=== PATIENT | male | born 1945 | race Two or more races ===

== ENCOUNTER 2017-08-31 08:34 | Outpatient (CLI) | payer OTHER | END 2017-08-31 08:43 | disposition home or self-care (01) | LOC: LAB 08:34 | DX: E11.65 Type 2 diabetes mellitus with hyperglycemia (principal); E10.65 Type 1 diabetes mellitus with hyperglycemia; E03.8 Other specified hypothyroidism; E05.90 Thyrotoxicosis, unspecified without thyrotoxic crisis or storm; E78.2 Mixed hyperlipidemia; E55.9 Vitamin D deficiency, unspecified; D64.89 Other specified anemias; N39.0 Urinary tract infection, site not specified; N40.0 Benign prostatic hyperplasia without lower urinary tract symptoms; E21.3 Hyperparathyroidism, unspecified; E24.9 Cushing's syndrome, unspecified; E29.1 Testicular hypofunction; E22.1 Hyperprolactinemia ==

== ENCOUNTER 2017-11-23 10:48 | Outpatient (CLI) | payer OTHER | END 2017-11-23 10:58 | disposition home or self-care (01) | LOC: MRI 10:48 | DX: M54.5 Low back pain (principal) | CPT/HCPCS: 72148 ==

== ENCOUNTER 2017-12-21 13:57 | Outpatient (CLI) | payer OTHER | END 2017-12-21 14:05 | disposition home or self-care (01) | LOC: SONOGRAMA 13:57 | DX: E04.1 Nontoxic single thyroid nodule (principal) ==

== ENCOUNTER 2017-12-22 07:37 | Outpatient (CLI) | payer OTHER | END 2017-12-22 08:06 | disposition home or self-care (01) | LOC: LAB 07:37 | DX: E11.65 Type 2 diabetes mellitus with hyperglycemia (principal); E10.65 Type 1 diabetes mellitus with hyperglycemia; E03.8 Other specified hypothyroidism; E05.90 Thyrotoxicosis, unspecified without thyrotoxic crisis or storm; E78.2 Mixed hyperlipidemia; E55.9 Vitamin D deficiency, unspecified; D68.9 Coagulation defect, unspecified; N39.0 Urinary tract infection, site not specified; N40.0 Benign prostatic hyperplasia without lower urinary tract symptoms; E21.3 Hyperparathyroidism, unspecified; E24.8 Other Cushing's syndrome; E29.1 Testicular hypofunction; E22.1 Hyperprolactinemia; E27.49 Other adrenocortical insufficiency ==

== ENCOUNTER 2018-05-12 08:33 | Outpatient (CLI) | payer OTHER | END 2018-05-12 08:35 | disposition home or self-care (01) | LOC: LAB 08:33 | DX: E11.65 Type 2 diabetes mellitus with hyperglycemia (principal); E10.65 Type 1 diabetes mellitus with hyperglycemia; E03.8 Other specified hypothyroidism; E05.90 Thyrotoxicosis, unspecified without thyrotoxic crisis or storm; E78.2 Mixed hyperlipidemia; E55.9 Vitamin D deficiency, unspecified; D64.89 Other specified anemias; N39.0 Urinary tract infection, site not specified; N40.0 Benign prostatic hyperplasia without lower urinary tract symptoms; E29.1 Testicular hypofunction; E22.1 Hyperprolactinemia; E27.49 Other adrenocortical insufficiency; E21.2 Other hyperparathyroidism; E24.8 Other Cushing's syndrome ==

== ENCOUNTER → 2018-07-25 | Outpatient (CLI) | payer OTHER | END | disposition home or self-care (01) | LOC: RAD 16:04 | DX: M17.11 Unilateral primary osteoarthritis, right knee (principal) ==

== ENCOUNTER 2018-09-19 09:03 | Outpatient (CLI) | payer OTHER | END 2018-09-19 09:09 | disposition home or self-care (01) | LOC: LAB 09:03 | DX: E11.65 Type 2 diabetes mellitus with hyperglycemia (principal); D64.89 Other specified anemias; E78.2 Mixed hyperlipidemia ==

== ENCOUNTER 2018-12-04 16:19 | Outpatient (CLI) | payer OTHER | END 2018-12-04 16:28 | disposition home or self-care (01) | LOC: LAB 16:19 | DX: R97.20 Elevated prostate specific antigen [PSA] (principal) ==

== ENCOUNTER 2018-12-23 07:59 | Outpatient (CLI) | payer OTHER | END 2018-12-23 08:06 | disposition home or self-care (01) | LOC: LAB 07:59 | DX: E55.9 Vitamin D deficiency, unspecified (principal); E03.8 Other specified hypothyroidism; D64.89 Other specified anemias; N40.0 Benign prostatic hyperplasia without lower urinary tract symptoms; E78.2 Mixed hyperlipidemia; E11.65 Type 2 diabetes mellitus with hyperglycemia; N31.8 Other neuromuscular dysfunction of bladder ==

== ENCOUNTER → 2019-01-17 | Outpatient (CLI) | payer OTHER | END | disposition home or self-care (01) | LOC: TOM 14:58 | DX: S06.5X0A Traumatic subdural hemorrhage without loss of consciousness, initial encounter (principal) ==

== ENCOUNTER 2019-01-26 14:29 | Outpatient (CLI) | payer OTHER | END 2019-01-26 14:32 | disposition home or self-care (01) | LOC: RAD 14:29 | DX: M47.12 Other spondylosis with myelopathy, cervical region (principal) ==

== ENCOUNTER 2019-04-30 09:42 | Outpatient (CLI) | payer OTHER | END 2019-04-30 09:48 | disposition home or self-care (01) | LOC: LAB 09:42 | DX: R97.21 Rising PSA following treatment for malignant neoplasm of prostate (principal); E55.9 Vitamin D deficiency, unspecified; E11.65 Type 2 diabetes mellitus with hyperglycemia; D64.89 Other specified anemias; E78.2 Mixed hyperlipidemia; E03.8 Other specified hypothyroidism; N39.0 Urinary tract infection, site not specified ==

== ENCOUNTER 2019-09-12 08:18 | Outpatient (CLI) | payer OTHER | END 2019-09-12 08:39 | disposition home or self-care (01) | LOC: LAB 08:18 | DX: D64.89 Other specified anemias (principal); E55.9 Vitamin D deficiency, unspecified; E11.65 Type 2 diabetes mellitus with hyperglycemia; E03.8 Other specified hypothyroidism; E78.2 Mixed hyperlipidemia; D51.8 Other vitamin B12 deficiency anemias ==

== ENCOUNTER 2019-10-15 08:17 | Outpatient (CLI) | payer OTHER | END 2019-10-15 08:30 | disposition home or self-care (01) | LOC: LAB 08:17 | DX: R10.84 Generalized abdominal pain (principal); I10 Essential (primary) hypertension; E11.9 Type 2 diabetes mellitus without complications; E78.49 Other hyperlipidemia; D64.89 Other specified anemias; R80.8 Other proteinuria; E55.9 Vitamin D deficiency, unspecified; R06.00 Dyspnea, unspecified; M50.00 Cervical disc disorder with myelopathy, unspecified cervical region ==

== ENCOUNTER 2019-10-15 09:50 | Outpatient (CLI) | payer OTHER | END 2019-10-15 09:59 | disposition home or self-care (01) | LOC: RAD 09:50 | DX: M50.10 Cervical disc disorder with radiculopathy, unspecified cervical region (principal) ==

== ENCOUNTER 2019-10-16 08:51 | Outpatient (CLI) | payer OTHER | END 2019-10-16 08:57 | disposition home or self-care (01) | LOC: NUCLEAR 08:51 | DX: M85.89 Other specified disorders of bone density and structure, multiple sites (principal); M50.00 Cervical disc disorder with myelopathy, unspecified cervical region; M50.10 Cervical disc disorder with radiculopathy, unspecified cervical region ==

== ENCOUNTER 2020-02-25 11:18 | Outpatient (CLI) | payer OTHER | END 2020-02-25 12:38 | disposition home or self-care (01) | LOC: RAD 11:18 | PROVIDERS: ATTEND Orthopaedic Surgery | DX: M50.00 Cervical disc disorder with myelopathy, unspecified cervical region (principal); M50.10 Cervical disc disorder with radiculopathy, unspecified cervical region ==

== ENCOUNTER 2020-03-19 08:15 | Outpatient (CLI) | payer OTHER | END 2020-03-19 15:00 | disposition home or self-care (01) | LOC: LAB 08:15 | PROVIDERS: ATTEND Internal Medicine Cardiovascular Disease | DX: Z00.8 Encounter for other general examination (principal); E13.9 Other specified diabetes mellitus without complications ==

== ENCOUNTER → 2020-06-05 | Outpatient (CLI) | payer OTHER | END | disposition home or self-care (01) | LOC: TOM 11:03 | DX: M47.892 Other spondylosis, cervical region (principal); M48.02 Spinal stenosis, cervical region; M50.00 Cervical disc disorder with myelopathy, unspecified cervical region; M50.10 Cervical disc disorder with radiculopathy, unspecified cervical region ==

== ENCOUNTER → 2020-07-02 08:28 | Outpatient (CLI) | payer OTHER | END | disposition home or self-care (01) | LOC: LAB 08:28 | PROVIDERS: ATTEND Internal Medicine Endocrinology, Diabetes & Metabolism | DX: N40.0 Benign prostatic hyperplasia without lower urinary tract symptoms (principal); E11.65 Type 2 diabetes mellitus with hyperglycemia; N39.0 Urinary tract infection, site not specified; D64.89 Other specified anemias; D51.8 Other vitamin B12 deficiency anemias; E78.2 Mixed hyperlipidemia ==

== ENCOUNTER 2020-09-15 11:14 | Outpatient (CLI) | payer OTHER | END 2020-09-15 11:24 | disposition home or self-care (01) | LOC: LAB 11:14 | PROVIDERS: ATTEND Urology | DX: R31.29 Other microscopic hematuria (principal); R97.21 Rising PSA following treatment for malignant neoplasm of prostate ==

== ENCOUNTER 2020-09-17 13:35 | Outpatient (CLI) | payer OTHER | END 2020-09-17 13:48 | disposition home or self-care (01) | LOC: SONOGRAMA 13:35 → MAMO-SONO 14:15 | PROVIDERS: ATTEND Urology | DX: Q61.8 Other cystic kidney diseases (principal); R97.20 Elevated prostate specific antigen [PSA]; R31.29 Other microscopic hematuria ==

== ENCOUNTER 2020-10-31 07:20 | Outpatient (CLI) | payer OTHER | END 2020-10-31 07:24 | disposition home or self-care (01) | LOC: LAB 07:20 | PROVIDERS: ATTEND Internal Medicine Endocrinology, Diabetes & Metabolism | DX: D64.89 Other specified anemias (principal); E11.65 Type 2 diabetes mellitus with hyperglycemia; E78.2 Mixed hyperlipidemia; N39.0 Urinary tract infection, site not specified; N40.0 Benign prostatic hyperplasia without lower urinary tract symptoms ==

== ENCOUNTER 2020-11-10 10:12 | Outpatient (CLI) | payer OTHER | END 2020-11-10 10:17 | disposition home or self-care (01) | LOC: RAD 10:12 | DX: M50.00 Cervical disc disorder with myelopathy, unspecified cervical region (principal) ==

== ENCOUNTER → 2020-11-24 08:16 | Outpatient (CLI) | payer OTHER | END | disposition home or self-care (01) | LOC: LAB 08:16 | PROVIDERS: ATTEND Internal Medicine Rheumatology | DX: Z79.02 Long term (current) use of antithrombotics/antiplatelets (principal); E79.0 Hyperuricemia without signs of inflammatory arthritis and tophaceous disease; I10 Essential (primary) hypertension ==

== ENCOUNTER 2020-11-24 09:09 | Outpatient (CLI) | payer OTHER | END 2020-11-24 09:15 | disposition home or self-care (01) | LOC: RAD 09:09 | PROVIDERS: ATTEND Internal Medicine Rheumatology | DX: M25.561 Pain in right knee (principal); M25.811 Other specified joint disorders, right shoulder; M15.8 Other polyosteoarthritis; M25.562 Pain in left knee; M25.522 Pain in left elbow ==

== ENCOUNTER 2021-01-27 09:43 | Outpatient (CLI) | payer OTHER | END 2021-01-27 09:48 | disposition home or self-care (01) | LOC: LAB 09:43 | PROVIDERS: ATTEND Internal Medicine Endocrinology, Diabetes & Metabolism | DX: E11.65 Type 2 diabetes mellitus with hyperglycemia (principal); D64.9 Anemia, unspecified; E03.8 Other specified hypothyroidism; D51.8 Other vitamin B12 deficiency anemias ==

== ENCOUNTER → 2021-03-19 08:27 | Outpatient (CLI) | payer OTHER | END | disposition home or self-care (01) | LOC: LAB 08:27 | PROVIDERS: ATTEND Urology | DX: R97.21 Rising PSA following treatment for malignant neoplasm of prostate (principal) ==

== ENCOUNTER 2021-03-30 12:23 | Outpatient (CLI) | payer OTHER | END 2021-03-30 12:30 | disposition home or self-care (01) | LOC: RAD 12:23 | PROVIDERS: ATTEND Physical Medicine & Rehabilitation | DX: M54.5 Low back pain (principal); M17.11 Unilateral primary osteoarthritis, right knee ==

== ENCOUNTER 2021-04-07 06:35 | Outpatient (CLI) | payer OTHER | END 2021-04-07 06:38 | disposition home or self-care (01) | LOC: LAB 06:35 | PROVIDERS: ATTEND Urology | DX: R97.21 Rising PSA following treatment for malignant neoplasm of prostate (principal) ==

== ENCOUNTER 2021-05-18 08:45 | Emergency (ER) | payer OTHER ==
[~2021-05-18] VITALS: Ht 170.2 cm; Wt 68.0 kg
[2021-05-18] MEDS ORDERED: JANUMET 50-1,01 EACH PO (09:20)
[2021-05-18] MEDS ORDERED: GLIPIZIDE XL2.5 MG PO (09:20)
[2021-05-18] MEDS ORDERED: AMLODIPINE-OLM1 EAC3 PO (09:21)
[2021-05-18] MEDS ORDERED: EZALLOR SPRINKL10 MG PO (09:21)
[2021-05-18] MEDS ORDERED: CLONIDINE1 EAC1 (09:21)
[2021-05-18] MEDS ORDERED: GABAPENTIN300 M2 PO (09:22)
[2021-05-18] MEDS ORDERED: HYDRODIURIL12.5 MG PO (09:22)
[2021-05-18] MEDS ORDERED: ZIPSOR25 MG PO (09:22)
[2021-05-18] MEDS ORDERED: FORTAMET1000 MG PO (09:23)
[2021-05-18] MEDS ORDERED: ZYRTEC10 M3 PO (13:20)
[2021-05-18] MEDS ORDERED: CLOTRIMAZOLE-BE15 G1 TOP (13:20)
== END 2021-05-18 14:34 | disposition home or self-care (01) ==
LOC: ER 08:45
DX: L29.8 Other pruritus (principal); R21 Rash and other nonspecific skin eruption

== ENCOUNTER 2021-06-19 10:27 | Outpatient (CLI) | payer OTHER ==
[~2021-06-19 10:27] MED LIST: AMLODIPINE-OLM1 EAC3 PO; CLONIDINE1 EAC1; CLOTRIMAZOLE-BE15 G1 TOP; EZALLOR SPRINKL10 MG PO; FORTAMET1000 MG PO; GABAPENTIN300 M2 PO; GLIPIZIDE XL2.5 MG PO; HYDRODIURIL12.5 MG PO; JANUMET 50-1,01 EACH PO; ZIPSOR25 MG PO; ZYRTEC10 M3 PO
== END 2021-06-19 10:28 | disposition home or self-care (01) ==
LOC: LAB 10:27
PROVIDERS: ATTEND Internal Medicine Endocrinology, Diabetes & Metabolism
DX: E11.65 Type 2 diabetes mellitus with hyperglycemia (principal); E03.8 Other specified hypothyroidism; E05.90 Thyrotoxicosis, unspecified without thyrotoxic crisis or storm; E55.9 Vitamin D deficiency, unspecified; D64.89 Other specified anemias; N39.0 Urinary tract infection, site not specified; N40.0 Benign prostatic hyperplasia without lower urinary tract symptoms; E21.2 Other hyperparathyroidism; E24.8 Other Cushing's syndrome; E29.1 Testicular hypofunction

== ENCOUNTER 2021-06-30 12:05 | Outpatient (CLI) | payer OTHER | END 2021-06-30 12:17 | disposition home or self-care (01) | LOC: RAD 12:05 | PROVIDERS: ATTEND Orthopaedic Surgery | DX: M48.061 Spinal stenosis, lumbar region without neurogenic claudication (principal); M54.16 Radiculopathy, lumbar region; M25.562 Pain in left knee; M25.561 Pain in right knee | CPT/HCPCS: 72148 ==

== ENCOUNTER 2021-07-27 14:41 | Outpatient (CLI) | payer OTHER | END 2021-07-27 14:49 | disposition home or self-care (01) | LOC: RAD 14:41 | PROVIDERS: ATTEND Orthopaedic Surgery | DX: M48.061 Spinal stenosis, lumbar region without neurogenic claudication (principal); Q61.01 Congenital single renal cyst; M54.16 Radiculopathy, lumbar region ==

== ENCOUNTER 2021-07-30 10:14 | Outpatient (CLI) | payer OTHER | END 2021-07-30 10:15 | disposition home or self-care (01) | LOC: LAB 10:14 | PROVIDERS: ATTEND Orthopaedic Surgery | DX: M48.061 Spinal stenosis, lumbar region without neurogenic claudication (principal); M54.16 Radiculopathy, lumbar region; D64.89 Other specified anemias; I10 Essential (primary) hypertension; D68.8 Other specified coagulation defects; N39.0 Urinary tract infection, site not specified ==

== ENCOUNTER 2021-09-01 09:36 | Outpatient (CLI) | payer OTHER | END 2021-09-01 09:45 | disposition home or self-care (01) | LOC: LAB 09:36 | PROVIDERS: ATTEND Orthopaedic Surgery | DX: D64.89 Other specified anemias (principal); I10 Essential (primary) hypertension; D68.8 Other specified coagulation defects; N39.0 Urinary tract infection, site not specified ==

== ENCOUNTER 2021-09-22 09:10 | Outpatient (CLI) | payer OTHER | END 2021-09-22 09:17 | disposition home or self-care (01) | LOC: LAB 09:10 | PROVIDERS: ATTEND Internal Medicine Endocrinology, Diabetes & Metabolism | DX: E78.2 Mixed hyperlipidemia (principal); D64.9 Anemia, unspecified; E55.9 Vitamin D deficiency, unspecified ==

== ENCOUNTER 2021-12-15 08:34 | Outpatient (CLI) | payer OTHER | END 2021-12-15 08:45 | disposition home or self-care (01) | LOC: LAB 08:34 | PROVIDERS: ATTEND Internal Medicine Endocrinology, Diabetes & Metabolism | DX: E11.65 Type 2 diabetes mellitus with hyperglycemia (principal); E78.2 Mixed hyperlipidemia; D64.9 Anemia, unspecified; E55.9 Vitamin D deficiency, unspecified; E03.9 Hypothyroidism, unspecified; D57.819 Other sickle-cell disorders with crisis, unspecified ==

== ENCOUNTER 2021-12-30 10:48 | Outpatient (CLI) | payer OTHER | END 2021-12-30 10:57 | disposition home or self-care (01) | LOC: RAD 10:48 | PROVIDERS: ATTEND Orthopaedic Surgery | DX: M48.061 Spinal stenosis, lumbar region without neurogenic claudication (principal); M54.16 Radiculopathy, lumbar region ==

== ENCOUNTER → 2022-02-19 08:50 | Outpatient (CLI) | payer OTHER | END | disposition home or self-care (01) | LOC: LAB 08:50 | PROVIDERS: ATTEND Internal Medicine Endocrinology, Diabetes & Metabolism | DX: D64.9 Anemia, unspecified (principal); D51.9 Vitamin B12 deficiency anemia, unspecified; E03.9 Hypothyroidism, unspecified; I10 Essential (primary) hypertension; E78.2 Mixed hyperlipidemia ==

== ENCOUNTER 2022-03-31 12:00 | Outpatient (CLI) | payer OTHER | END 2022-03-31 12:04 | disposition home or self-care (01) | LOC: LAB 12:00 | PROVIDERS: ATTEND Urology | DX: R97.21 Rising PSA following treatment for malignant neoplasm of prostate (principal) ==

== ENCOUNTER 2022-04-08 08:52 | Outpatient (CLI) | payer OTHER | END 2022-04-08 08:55 | disposition home or self-care (01) | LOC: LAB 08:52 | PROVIDERS: ATTEND Urology | DX: E11.9 Type 2 diabetes mellitus without complications (principal) ==

== ENCOUNTER 2022-04-12 11:17 | Outpatient (CLI) | payer OTHER | END 2022-04-12 11:26 | disposition home or self-care (01) | LOC: RAD 11:17 | PROVIDERS: ATTEND Orthopaedic Surgery | DX: M54.16 Radiculopathy, lumbar region (principal); M48.061 Spinal stenosis, lumbar region without neurogenic claudication ==

== ENCOUNTER 2022-05-14 10:19 | Outpatient (CLI) | payer OTHER | END 2022-05-14 10:25 | disposition home or self-care (01) | LOC: LAB 10:19 | PROVIDERS: ATTEND Urology | DX: R97.20 Elevated prostate specific antigen [PSA] (principal) ==

== ENCOUNTER 2022-06-04 07:36 | Outpatient (CLI) | payer OTHER | END 2022-06-04 07:46 | disposition home or self-care (01) | LOC: SONOGRAMA 07:36 | PROVIDERS: ATTEND Urology | DX: C61 Malignant neoplasm of prostate (principal); N42.31 Prostatic intraepithelial neoplasia; N40.0 Benign prostatic hyperplasia without lower urinary tract symptoms ==

== ENCOUNTER 2022-09-29 08:49 | Outpatient (CLI) | payer OTHER | END 2022-09-29 08:50 | disposition home or self-care (01) | LOC: LAB 08:49 | PROVIDERS: ATTEND Internal Medicine Endocrinology, Diabetes & Metabolism | DX: N40.0 Benign prostatic hyperplasia without lower urinary tract symptoms (principal); N39.0 Urinary tract infection, site not specified; E11.69 Type 2 diabetes mellitus with other specified complication; D51.0 Vitamin B12 deficiency anemia due to intrinsic factor deficiency; E78.2 Mixed hyperlipidemia ==

== ENCOUNTER 2022-10-29 13:37 | Outpatient (CLI) | payer OTHER | END 2022-10-29 13:39 | disposition home or self-care (01) | LOC: RAD 13:37 | PROVIDERS: ATTEND Orthopaedic Surgery | DX: M48.061 Spinal stenosis, lumbar region without neurogenic claudication (principal); M54.16 Radiculopathy, lumbar region ==

== ENCOUNTER → 2022-12-20 09:08 | Outpatient (CLI) | payer OTHER | END | disposition home or self-care (01) | LOC: LAB 09:08 | PROVIDERS: ATTEND Internal Medicine Endocrinology, Diabetes & Metabolism | DX: E55.9 Vitamin D deficiency, unspecified (principal); E11.69 Type 2 diabetes mellitus with other specified complication; D64.9 Anemia, unspecified; D51.8 Other vitamin B12 deficiency anemias; N39.0 Urinary tract infection, site not specified ==

== ENCOUNTER 2022-12-20 12:27 | Outpatient (CLI) | payer OTHER | END 2022-12-20 12:34 | disposition home or self-care (01) | LOC: RAD 12:27 | PROVIDERS: ATTEND Physical Medicine & Rehabilitation | DX: M17.11 Unilateral primary osteoarthritis, right knee (principal); M25.561 Pain in right knee ==

== ENCOUNTER 2023-01-25 08:18 | Outpatient (CLI) | payer OTHER | END 2023-01-25 08:21 | disposition home or self-care (01) | LOC: LAB 08:18 | PROVIDERS: ATTEND Internal Medicine | DX: D64.9 Anemia, unspecified (principal); R10.9 Unspecified abdominal pain; E78.5 Hyperlipidemia, unspecified ==

== ENCOUNTER 2023-03-10 10:00 | Outpatient (CLI) | payer OTHER | END 2023-03-10 10:03 | disposition home or self-care (01) | LOC: LAB 10:00 | PROVIDERS: ATTEND Urology | DX: C61 Malignant neoplasm of prostate (principal) ==

== ENCOUNTER → 2023-05-03 08:18 | Outpatient (CLI) | payer OTHER | END | disposition home or self-care (01) | LOC: LAB 08:18 | PROVIDERS: ATTEND Internal Medicine Endocrinology, Diabetes & Metabolism | DX: E11.65 Type 2 diabetes mellitus with hyperglycemia (principal); E78.2 Mixed hyperlipidemia; D64.9 Anemia, unspecified; D51.9 Vitamin B12 deficiency anemia, unspecified ==

== ENCOUNTER 2023-05-30 14:25 | Outpatient (CLI) | payer OTHER | END 2023-05-30 14:30 | disposition home or self-care (01) | LOC: RAD 14:25 | PROVIDERS: ATTEND Ophthalmology | DX: Z98.41 Cataract extraction status, right eye (principal) ==

== ENCOUNTER → 2023-06-02 09:05 | Outpatient (CLI) | payer OTHER ==
[2023-06-02 09:32] LABS: HEMATOCRIT 33.8 % (39.0-48.0); HEMOGLOBIN 11.5 g/dL (13-16.00); MEAN CELL VOLUME 93.6 fL (80.0-100.00); MEAN CORPUSCULAR HEMOGLOBIN 31.7 pg (27.00-32.0); MEAN CORPUSCULAR HGB CONC 33.9 g/dl (32.0-36.0); PLATELET COUNT 202 K/uL (150-450); RED BLOOD COUNT 3.61 M/uL (4.00-6.00); RED CELL DISTRIBUTION WIDTH 14.4 % (11.5-14.5)
[2023-06-02 10:00] LABS: INR 1.01; PARTIAL THROMBOPLASTIN TIME 30.1 SECONDS (22.0-34.0); PROTHROMBIN TIME 10.6 SECONDS (9.0-11.5)
[2023-06-02 10:21] LABS: ALBUMIN 3.8 gm/dL (3.4-5.0); BILIRUBIN TOTAL 0.44 mg/dL (0.3-1.2); CALCIUM 9.2 mg/dL (8.5-10.1); CREATININE SERUM 1.46 mg/dL (0.70-1.30); GFR 47.07; GLOBULINA 2.9 G/DL (2.4-3.5); POTASSIUM 4.84 mEq/L (3.5-5.1); TOTAL PROTEIN 6.7 gm/dL (6.4-8.2)
== END | disposition home or self-care (01) ==
LOC: LAB 09:05
PROVIDERS: ATTEND Ophthalmology
DX: H25.013 Cortical age-related cataract, bilateral (principal)

== ENCOUNTER → 2023-06-28 08:51 | Outpatient (CLI) | payer OTHER ==
[2023-06-28 10:29] LABS: HEMATOCRIT 33.8 % (39.0-48.0); HEMOGLOBIN 11.4 g/dL (13-16.00); MEAN CELL VOLUME 94.6 fL (80.0-100.00); MEAN CORPUSCULAR HGB CONC 33.8 g/dl (32.0-36.0); PLATELET COUNT 206 K/uL (150-450); RED BLOOD COUNT 3.57 M/uL (4.00-6.00); RED CELL DISTRIBUTION WIDTH 14.1 % (11.5-14.5)
[2023-06-28 11:02] LABS: CALCIUM 9.4 mg/dL (8.5-10.1); CHOL HDL RATIO 1.9 (0-5.0); CREATININE SERUM 1.15 mg/dL (0.70-1.30); GFR 61.99; POTASSIUM 4.55 mEq/L (3.5-5.1)
== END | disposition home or self-care (01) ==
LOC: LAB 08:51
PROVIDERS: ATTEND Internal Medicine Endocrinology, Diabetes & Metabolism
DX: E11.69 Type 2 diabetes mellitus with other specified complication (principal); E78.2 Mixed hyperlipidemia; D64.9 Anemia, unspecified

== ENCOUNTER 2023-07-11 11:34 | Outpatient (CLI) | payer OTHER ==
[2023-07-11 12:14] LABS: HEMATOCRIT 35.7 % (39.0-48.0); HEMOGLOBIN 11.9 g/dL (13-16.00); MEAN CELL VOLUME 94.1 fL (80.0-100.00); MEAN CORPUSCULAR HEMOGLOBIN 31.2 pg (27.00-32.0); MEAN CORPUSCULAR HGB CONC 33.2 g/dl (32.0-36.0); PLATELET COUNT 229 K/uL (150-450); RED BLOOD COUNT 3.79 M/uL (4.00-6.00); RED CELL DISTRIBUTION WIDTH 13.8 % (11.5-14.5)
[2023-07-11 12:40] LABS: BILIRUBIN TOTAL 0.62 mg/dL (0.3-1.2); CALCIUM 9.8 mg/dL (8.5-10.1); CREATININE SERUM 1.36 mg/dL (0.70-1.30); GFR 51.08; POTASSIUM 4.28 mEq/L (3.5-5.1)
[2023-07-11 12:59] LABS: INR 0.97; PARTIAL THROMBOPLASTIN TIME 30.5 SECONDS (22.0-34.0); PROTHROMBIN TIME 10.2 SECONDS (9.0-11.5)
== END 2023-07-11 11:35 | disposition home or self-care (01) ==
LOC: LAB 11:34
PROVIDERS: ATTEND Ophthalmology
DX: D68.8 Other specified coagulation defects (principal); H25.012 Cortical age-related cataract, left eye

== ENCOUNTER 2023-09-20 08:54 | Outpatient (CLI) | payer OTHER ==
[2023-09-20 09:57] LABS: HEMATOCRIT 35.6 % (39.0-48.0); HEMOGLOBIN 12.1 g/dL (13-16.00); MEAN CELL VOLUME 93.1 fL (80.0-100.00); MEAN CORPUSCULAR HEMOGLOBIN 31.7 pg (27.00-32.0); PLATELET COUNT 243 K/uL (150-450); RED BLOOD COUNT 3.83 M/uL (4.00-6.00); RED CELL DISTRIBUTION WIDTH 14.6 % (11.5-14.5)
[2023-09-20 10:45] LABS: ALBUMIN 3.9 gm/dL (3.4-5.0); BILIRUBIN TOTAL 0.58 mg/dL (0.3-1.2); CALCIUM 9.7 mg/dL (8.5-10.1); CREATININE SERUM 1.41 mg/dL (0.70-1.30); GFR 48.87; GLOBULINA 2.9 G/DL (2.4-3.5); POTASSIUM 4.35 mEq/L (3.5-5.1); T4 FREE 0.98 NG/ML (0.76-1.46); TOTAL PROTEIN 6.8 gm/dL (6.4-8.2); TSH 0.774 uIU/mL (0.358-3.74)
[2023-09-20 14:36] LABS: FOLIC ACID > 20.00 ng/ml (4.78-20); VITAMIN D3 25 HYDROXY 44.22 ng/ml (30-120)
== END 2023-09-20 08:55 | disposition home or self-care (01) ==
LOC: LAB 08:54
PROVIDERS: ATTEND Internal Medicine Endocrinology, Diabetes & Metabolism
DX: E03.9 Hypothyroidism, unspecified (principal); D64.9 Anemia, unspecified; E51.8 Other manifestations of thiamine deficiency; E11.69 Type 2 diabetes mellitus with other specified complication; E78.2 Mixed hyperlipidemia; N39.0 Urinary tract infection, site not specified; E55.9 Vitamin D deficiency, unspecified

== ENCOUNTER → 2023-10-20 10:42 | Outpatient (CLI) | payer OTHER ==
[2023-10-20 11:45] LABS: URINE APPEARANCE Clear; URINE BILIRRUBIN Negative (NEGATIVE); URINE BLOOD Small; URINE COLOR Yellow; URINE GLUCOSE Negative (NEGATIVE); URINE LEUKOCYTE Negative; URINE NITRATE Negative; URINE PROTEIN 30 (NEGATIVE)
[2023-10-20 11:48] LABS: URINE EPITHELIAL CELLS 2.1 uL (0.0-38.8); URINE RBC 18.6 uL (0.0-20.8)
[2023-10-20 12:17] LABS: URINE WBC 0.9 uL (0.0-23.2)
== END | disposition home or self-care (01) ==
LOC: LAB 10:42
PROVIDERS: ATTEND Urology
DX: C61 Malignant neoplasm of prostate (principal)

== ENCOUNTER 2023-10-21 11:01 | Outpatient (CLI) | payer OTHER | END 2023-10-21 11:08 | disposition home or self-care (01) | LOC: TOM 11:01 | PROVIDERS: ATTEND Orthopaedic Surgery | DX: M48.061 Spinal stenosis, lumbar region without neurogenic claudication (principal); M54.16 Radiculopathy, lumbar region ==

== ENCOUNTER 2024-02-27 12:55 | Outpatient (CLI) | payer OTHER ==
[2024-02-27 13:27] LABS: HEMATOCRIT 33.3 % (39.0-48.0); HEMOGLOBIN 11.5 g/dL (13-16.00); MEAN CELL VOLUME 93.1 fL (80.0-100.00); MEAN CORPUSCULAR HEMOGLOBIN 32.2 pg (27.00-32.0); MEAN CORPUSCULAR HGB CONC 34.6 g/dl (32.0-36.0); PLATELET COUNT 237 K/uL (150-450); RED BLOOD COUNT 3.58 M/uL (4.00-6.00); RED CELL DISTRIBUTION WIDTH 14.7 % (11.5-14.5)
[2024-02-27 14:01] LABS: ALBUMIN 4.1 gm/dL (3.4-5.0); BILIRUBIN TOTAL 0.67 mg/dL (0.3-1.2); CALCIUM 9.5 mg/dL (8.5-10.1); CREATININE SERUM 1.39 mg/dL (0.70-1.30); GFR 49.68; GLOBULINA 2.8 G/DL (2.4-3.5); POTASSIUM 4.32 mEq/L (3.5-5.1); TOTAL PROTEIN 6.9 gm/dL (6.4-8.2)
== END 2024-02-27 12:59 | disposition home or self-care (01) ==
LOC: LAB 12:55
PROVIDERS: ATTEND Internal Medicine Endocrinology, Diabetes & Metabolism
DX: E11.69 Type 2 diabetes mellitus with other specified complication (principal); D64.9 Anemia, unspecified

== ENCOUNTER 2024-05-29 09:23 | Outpatient (CLI) | payer OTHER ==
[2024-05-29 10:12] LABS: URINE APPEARANCE Clear; URINE BILIRRUBIN Negative (NEGATIVE); URINE COLOR Yellow; URINE GLUCOSE Negative (NEGATIVE); URINE KETONE Negative (NEGATIVE); URINE LEUKOCYTE Negative; URINE NITRATE Negative; URINE UROBILINOGEN 0.2 E.U./dl
[2024-05-29 10:17] LABS: URINE BACTERIA 162.4 uL (0.0-1933); URINE EPITHELIAL CELLS 6.9 uL (0.0-38.8); URINE RBC 44.8 uL (0.0-20.8); URINE WBC 7.4 uL (0.0-23.2)
[2024-05-29 10:25] LABS: HEMATOCRIT 35.5 % (39.0-48.0); HEMOGLOBIN 12.1 g/dL (13-16.00); MEAN CELL VOLUME 93.4 fL (80.0-100.00); MEAN CORPUSCULAR HEMOGLOBIN 31.9 pg (27.00-32.0); MEAN CORPUSCULAR HGB CONC 34.1 g/dl (32.0-36.0); PLATELET COUNT 230 K/uL (150-450); RED BLOOD COUNT 3.81 M/uL (4.00-6.00)
[2024-05-29 10:33] LABS: URINE BLOOD TRACES; URINE PROTEIN 100 (NEGATIVE)
[2024-05-29 11:28] LABS: ALBUMIN 3.8 gm/dL (3.4-5.0); BILIRUBIN TOTAL 0.75 mg/dL (0.3-1.2); CALCIUM 9.5 mg/dL (8.5-10.1); CHOL HDL RATIO 2.1 (0-5.0); CREATININE SERUM 1.43 mg/dL (0.70-1.30); FREE TRIODOTIRONINE 2.54 pg/ml (2.18-3.98); GFR 48.08; MAGNESIUM 2.2 mg/dL (1.8-2.4); POTASSIUM 4.73 mEq/L (3.5-5.1); T4 FREE 1.07 NG/ML (0.76-1.46); TOTAL PROTEIN 6.8 gm/dL (6.4-8.2); TSH 1.26 uIU/mL (0.358-3.74)
[2024-05-30 08:06] LABS: FOLIC ACID > 20.00 ng/ml (4.78-20); VITAMIN D3 25 HYDROXY 88.43 ng/ml (30-120)
== END 2024-05-29 09:29 | disposition home or self-care (01) ==
LOC: LAB 09:23
PROVIDERS: ATTEND Internal Medicine Endocrinology, Diabetes & Metabolism
DX: E11.65 Type 2 diabetes mellitus with hyperglycemia (principal); E03.9 Hypothyroidism, unspecified; D64.9 Anemia, unspecified; E53.8 Deficiency of other specified B group vitamins; E78.2 Mixed hyperlipidemia; E55.9 Vitamin D deficiency, unspecified; N39.0 Urinary tract infection, site not specified

== ENCOUNTER → 2024-06-13 11:12 | Outpatient (CLI) | payer OTHER | END | disposition home or self-care (01) | LOC: LAB 11:12 | PROVIDERS: ATTEND Urology | DX: C61 Malignant neoplasm of prostate (principal) ==

== ENCOUNTER 2024-07-18 10:35 | Outpatient (CLI) | payer OTHER ==
[2024-07-18 11:34] LABS: PH,URINE 6.5; URINE BILIRRUBIN NEGATIVE (NEGATIVE); URINE BLOOD SMALL; URINE GLUCOSE NEGATIVE (NEGATIVE); URINE KETONE NEGATIVE (NEGATIVE); URINE NITRATE NEGATIVE; URINE PROTEIN 30 (NEGATIVE); URINE UROBILINOGEN 0.2 E.U./dl
[2024-07-18 11:54] LABS: HEMATOCRIT 34.6 % (39.0-48.0); HEMOGLOBIN 11.8 g/dL (13-16.00); MEAN CELL VOLUME 93.9 fL (80.0-100.00); MEAN CORPUSCULAR HEMOGLOBIN 32.2 pg (27.00-32.0); MEAN CORPUSCULAR HGB CONC 34.3 g/dl (32.0-36.0); PLATELET COUNT 224 K/uL (150-450); RED BLOOD COUNT 3.68 M/uL (4.00-6.00); RED CELL DISTRIBUTION WIDTH 14.4 % (11.5-14.5)
[2024-07-18 12:21] LABS: URINE APPEARANCE CLEAR; URINE COLOR YELLOW
[2024-07-18 12:23] LABS: URINE BACTERIA MODERATE; URINE CRYSTALS FEW /HPF; URINE EPITHELIAL CELLS 0-4 /HPF; URINE LEUKOCYTE TRACE; URINE MUCUS NEGATIVE
[2024-07-18 13:03] LABS: ALBUMIN 3.8 gm/dL (3.4-5.0); BILIRUBIN TOTAL 0.69 mg/dL (0.3-1.2); CALCIUM 8.8 mg/dL (8.5-10.1); CHOL HDL RATIO 1.7 (0-5.0); CREATININE SERUM 1.46 mg/dL (0.70-1.30); FREE TRIODOTIRONINE 2.25 pg/ml (2.18-3.98); GFR 46.94; GLOBULINA 2.8 G/DL (2.4-3.5); POTASSIUM 4.37 mEq/L (3.5-5.1); T4 FREE 0.91 NG/ML (0.76-1.46); TOTAL PROTEIN 6.6 gm/dL (6.4-8.2); TSH 1.34 uIU/mL (0.358-3.74)
[2024-07-18 13:13] LABS: PROSTATIC SPECIFIC ANTIGEN 12.4 NG/ML (0.010-4.00)
[2024-07-18 13:32] LABS: VITAMIN D3 25 HYDROXY 69.69 ng/ml (30-120)
== END 2024-07-18 10:51 | disposition home or self-care (01) ==
LOC: LAB 10:35
PROVIDERS: ATTEND Internal Medicine Endocrinology, Diabetes & Metabolism
DX: E11.65 Type 2 diabetes mellitus with hyperglycemia (principal); E03.9 Hypothyroidism, unspecified; D64.9 Anemia, unspecified; E53.8 Deficiency of other specified B group vitamins; E78.2 Mixed hyperlipidemia; E55.9 Vitamin D deficiency, unspecified; R97.0 Elevated carcinoembryonic antigen [CEA]; N39.0 Urinary tract infection, site not specified; N40.0 Benign prostatic hyperplasia without lower urinary tract symptoms

== ENCOUNTER 2024-11-15 09:49 | Outpatient (CLI) | payer OTHER ==
[2024-11-15 11:03] LABS: HEMATOCRIT 37.2 % (39.0-48.0); HEMOGLOBIN 12.5 g/dL (13-16.00); MEAN CORPUSCULAR HEMOGLOBIN 32.3 pg (27.00-32.0); MEAN CORPUSCULAR HGB CONC 33.6 g/dl (32.0-36.0); PLATELET COUNT 218 K/uL (150-450); RED BLOOD COUNT 3.87 M/uL (4.00-6.00)
[2024-11-15 11:05] LABS: URINE APPEARANCE Clear; URINE BILIRRUBIN Negative (NEGATIVE); URINE BLOOD Negative; URINE COLOR Yellow; URINE GLUCOSE Negative (NEGATIVE); URINE KETONE Negative (NEGATIVE); URINE LEUKOCYTE Negative; URINE NITRATE Negative; URINE PROTEIN 30 (NEGATIVE); URINE UROBILINOGEN 0.2 E.U./dl
[2024-11-15 11:10] LABS: URINE BACTERIA 18.3 uL (0.0-1933); URINE EPITHELIAL CELLS 1.5 uL (0.0-38.8); URINE RBC 23.2 uL (0.0-20.8)
[2024-11-15 11:14] LABS: URINE WBC 0.6 uL (0.0-23.2)
[2024-11-15 12:47] LABS: VITAMIN D3 25 HYDROXY 58.51 ng/ml (30-120)
[2024-11-15 13:03] LABS: ALBUMIN 3.9 gm/dL (3.4-5.0); BILIRUBIN TOTAL 0.72 mg/dL (0.3-1.2); CALCIUM 9.4 mg/dL (8.5-10.1); CREATININE SERUM 1.69 mg/dL (0.70-1.30); FREE TRIODOTIRONINE 2.33 pg/ml (2.18-3.98); GFR 39.54; GLOBULINA 3.1 G/DL (2.4-3.5); POTASSIUM 4.38 mEq/L (3.5-5.1); T4 FREE 1.01 NG/ML (0.76-1.46); TSH 1.18 uIU/mL (0.358-3.74)
[2024-11-15 13:04] LABS: PROSTATIC SPECIFIC ANTIGEN 12.8 NG/ML (0.010-4.00)
== END 2024-11-15 10:01 | disposition home or self-care (01) ==
LOC: LAB 09:49
PROVIDERS: ATTEND Internal Medicine Endocrinology, Diabetes & Metabolism
DX: E11.65 Type 2 diabetes mellitus with hyperglycemia (principal); E03.9 Hypothyroidism, unspecified; D64.9 Anemia, unspecified; E53.8 Deficiency of other specified B group vitamins; E78.2 Mixed hyperlipidemia; E55.9 Vitamin D deficiency, unspecified; R97.0 Elevated carcinoembryonic antigen [CEA]; N40.0 Benign prostatic hyperplasia without lower urinary tract symptoms; N39.0 Urinary tract infection, site not specified

== ENCOUNTER → 2024-12-26 11:17 | Outpatient (CLI) | payer OTHER | END | disposition home or self-care (01) | LOC: LAB 11:17 | PROVIDERS: ATTEND Urology | DX: C61 Malignant neoplasm of prostate (principal) ==

== ENCOUNTER 2025-03-11 12:19 | Outpatient (CLI) | payer OTHER | END 2025-03-11 12:23 | disposition home or self-care (01) | LOC: RAD 12:19 | PROVIDERS: ATTEND Physical Medicine & Rehabilitation | DX: M54.50 Low back pain, unspecified (principal); M53.3 Sacrococcygeal disorders, not elsewhere classified; W19.XXXA Unspecified fall, initial encounter ==

== ENCOUNTER 2025-03-12 09:21 | Outpatient (CLI) | payer OTHER ==
[2025-03-12 10:13] LABS: BASO % 0.7 % (0.1-1.2); EOS # 0.32 (0.04-0.54); EOS % 4.4 % (0.7-7.0); LYMPH # 2.30 (1.18-3.74); LYMPH % 31.9 % (19.3-53.1); MEAN PLATELET VOLUME 10.00 fl (9.4-12.4); MONO # 0.51 (0.24-0.82); MONO % 7.1 % (4.7-12.5); NEUT # 4.02 (1.56-6.13); NEUT % 55.6 % (34.0-71.1); RED CELL DISTRIBUTION WIDTH 13.7 % (11.6-14.4)
[2025-03-12 10:29] LABS: URINE APPEARANCE Clear; URINE BILIRRUBIN Negative (NEGATIVE); URINE BLOOD Trace; URINE COLOR Yellow; URINE GLUCOSE Negative (NEGATIVE); URINE KETONE Trace (NEGATIVE); URINE LEUKOCYTE Negative; URINE NITRATE Negative; URINE UROBILINOGEN 1.0 E.U./dl
[2025-03-12 10:34] LABS: URINE BACTERIA 6.0 uL (0.0-1933); URINE RBC 53.3 uL (0.0-20.8)
[2025-03-12 10:48] LABS: URINE CAST 0.00 uL (0.0-1.40); URINE EPITHELIAL CELLS 0.4 uL (0.0-38.8); URINE PROTEIN 100 (NEGATIVE); URINE WBC 1.3 uL (0.0-23.2)
[2025-03-12 11:54] LABS: ALT/SGPT 60.0 U/L (12-78); AST/SGOT 35.0 U/L (15-37); BILIRUBIN TOTAL 0.81 mg/dL (0.3-1.2); BUN CREA RATIO 14.0 (7.0-25.0); CHOL HDL RATIO 1.8 (0-5.0); CREATININE SERUM 1.62 mg/dL (0.70-1.30); GFR 41.52; GLOBULINA 3.0 G/DL (2.4-3.5); GLUCOSE FASTING 109.0 mg/dL (65-100); HDL 68.0 mg/dl (40-60); LDL 29.0 mg/dl (0-130); OSMOLALITY SERUM 289.0 MOSM/KG (275-295); VLDL 22.0 (0-39)
[2025-03-12 12:06] LABS: PROSTATIC SPECIFIC ANTIGEN 15.5 NG/ML (0.010-4.00)
== END 2025-03-12 09:32 | disposition home or self-care (01) ==
LOC: LAB 09:21
PROVIDERS: ATTEND Internal Medicine
DX: D64.9 Anemia, unspecified (principal); R10.9 Unspecified abdominal pain; E78.5 Hyperlipidemia, unspecified; R80.9 Proteinuria, unspecified; E11.9 Type 2 diabetes mellitus without complications; E11.65 Type 2 diabetes mellitus with hyperglycemia; E78.2 Mixed hyperlipidemia; I10 Essential (primary) hypertension; N39.0 Urinary tract infection, site not specified; N40.0 Benign prostatic hyperplasia without lower urinary tract symptoms

== ENCOUNTER → 2025-04-18 10:50 | Outpatient (CLI) | payer OTHER ==
[2025-04-18 11:24] LABS: BASO % 0.6 % (0.1-1.2); EOS # 0.39 (0.04-0.54); EOS % 6.1 % (0.7-7.0); LYMPH # 1.83 (1.18-3.74); LYMPH % 28.8 % (19.3-53.1); MEAN PLATELET VOLUME 10.00 fl (9.4-12.4); MONO # 0.52 (0.24-0.82); MONO % 8.2 % (4.7-12.5); NEUT # 3.56 (1.56-6.13); NEUT % 56.0 % (34.0-71.1); RED CELL DISTRIBUTION WIDTH 13.4 % (11.6-14.4)
[2025-04-18 12:27] LABS: BUN CREA RATIO 11.0 (7.0-25.0); CHOL HDL RATIO 2.1 (0-5.0); CREATININE SERUM 1.34 mg/dL (0.70-1.30); GFR 51.69; GLUCOSE FASTING 122.0 mg/dL (65-100); HDL 56.0 mg/dl (40-60); LDL 41.0 mg/dl (0-130); OSMOLALITY SERUM 280.0 MOSM/KG (275-295); VLDL 19.0 (0-39)
== END | disposition home or self-care (01) ==
LOC: LAB 10:50
DX: D64.9 Anemia, unspecified (principal); E11.65 Type 2 diabetes mellitus with hyperglycemia; E78.5 Hyperlipidemia, unspecified; E79.0 Hyperuricemia without signs of inflammatory arthritis and tophaceous disease; E55.9 Vitamin D deficiency, unspecified

== ENCOUNTER 2025-07-04 10:41 | Outpatient (CLI) | payer OTHER ==
[2025-07-04 11:35] LABS: URINE APPEARANCE Clear; URINE BILIRRUBIN Negative (NEGATIVE); URINE COLOR Yellow; URINE GLUCOSE Negative (NEGATIVE); URINE KETONE Negative (NEGATIVE); URINE LEUKOCYTE Negative; URINE NITRATE Negative; URINE PROTEIN 30 (NEGATIVE); URINE UROBILINOGEN 0.2 E.U./dl
[2025-07-04 11:40] LABS: URINE BACTERIA 16.7 uL (0.0-1933); URINE RBC 19.7 uL (0.0-20.8)
[2025-07-04 11:42] LABS: URINE BLOOD TRACE; URINE CAST 0.00 uL (0.0-1.40); URINE EPITHELIAL CELLS 0.1 uL (0.0-38.8); URINE WBC 0.9 uL (0.0-23.2)
[2025-07-04 11:46] LABS: BASO % 0.3 % (0.1-1.2); EOS # 0.27 (0.04-0.54); EOS % 3.4 % (0.7-7.0); LYMPH # 2.10 (1.18-3.74); LYMPH % 26.4 % (19.3-53.1); MEAN PLATELET VOLUME 9.80 fl (9.4-12.4); MONO # 0.59 (0.24-0.82); MONO % 7.4 % (4.7-12.5); NEUT # 4.93 (1.56-6.13); NEUT % 62.1 % (34.0-71.1); RED CELL DISTRIBUTION WIDTH 13.2 % (11.6-14.4)
[2025-07-04 12:28] LABS: ALT/SGPT 45.0 U/L (12-78); AST/SGOT 32.0 U/L (15-37); BILIRUBIN TOTAL 0.62 mg/dL (0.3-1.2); BUN CREA RATIO 11.0 (7.0-25.0); CHOL HDL RATIO 2.4 (0-5.0); CREATININE SERUM 1.49 mg/dL (0.70-1.30); GFR 45.73; GLOBULINA 3.2 G/DL (2.4-3.5); GLUCOSE FASTING 94.0 mg/dL (65-100); HDL 52.0 mg/dl (40-60); LDL 47.0 mg/dl (0-130); OSMOLALITY SERUM 286.0 MOSM/KG (275-295); T4 FREE 1.07 NG/ML (0.76-1.46); TSH 1.21 uIU/mL (0.358-3.74); VLDL 24.0 (0-39)
== END 2025-07-04 10:45 | disposition home or self-care (01) ==
LOC: LAB 10:41
PROVIDERS: ATTEND Internal Medicine
DX: E78.5 Hyperlipidemia, unspecified (principal); E11.65 Type 2 diabetes mellitus with hyperglycemia; I10 Essential (primary) hypertension; E03.8 Other specified hypothyroidism; E55.9 Vitamin D deficiency, unspecified

== ENCOUNTER 2025-07-10 12:27 | Outpatient (CLI) | payer OTHER ==
[2025-07-12 13:22] LABS: FOLIC ACID > 20.00 ng/ml (4.78-20)
== END 2025-07-10 12:33 | disposition home or self-care (01) ==
LOC: LAB 12:27
DX: E53.8 Deficiency of other specified B group vitamins (principal); M32.9 Systemic lupus erythematosus, unspecified